=== PATIENT | female | born 1940 | race Caucasian/White ===

== ENCOUNTER 2017-07-01 18:05 | Inpatient (IN) | payer OTHER ==
[~2017-07-01] VITALS: Ht 162.6 cm; Wt 90.4 kg
[~2017-07-01 18:05] MED LIST: ASPIR 8181 MG PO; ATENOLOL100 MG PO; BACTRIM DS1 TAB PO; BENICAR20 MG PO; COL100 PO; GLYBURIDE5 MG PO; ISOSORBIDE DINI20 MG PO; LAC PO; METFORMIN500 M1 PO; NORCO1 TA2 PO; SIMVASTATIN20 M1 PO; TRE400 PO
[2017-07-01 20:35] LABS: UA SPECIFIC GRAVITY 1.025 (1.005-1.035); microscopic required? YES; urine erythrocyte TRACE (NEGATIVE)
[2017-07-01 20:50] LABS: BASOPHIL % 0.4 % (0-2); PLATELET COUNT 273 x10^3mcL (130-400)
[2017-07-01 20:59] LABS: CALCIUM 9.1 mg/dL (8.5-10.1); CARBON DIOXIDE 29.3 mmol/L (21-32); CHLORIDE SERUM 101 mmol/L (98-107); CREATININE SERUM 1.4 mg/dL (0.6-1.0); GLUCOSE SERUM 172 mg/dL (74-106); POTASSIUM SERUM 3.1 mmol/L (3.5-5.1); SODIUM SERUM 140 mmol/L (136-145)
[2017-07-01 21:11] LABS: ALBUMIN 3.6 g/dL (3.4-5.0); ALKALINE PHOSPHATASE 103 U/L (46-116); ALT/SGPT 20 U/L (14-59); AST/SGOT 20 U/L (15-37); BILIRUBIN TOTAL 0.9 mg/dL (0.20-1.00); CHOLESTEROL 173 mg/dL (<200); HDL CHOLESTEROL 51 mg/dL (40-60); LIPASE 194 IU/L (73-393); TOTAL PROTEIN, SERUM 8.3 g/dL (6.4-8.2)
[2017-07-01] MEDS ORDERED: CLOPIDOGREL75 M1 PO (22:43)
[2017-07-01] MEDS ORDERED: JANUVIA100 M1 PO (22:44)
[2017-07-01] MEDS ORDERED: GLIPIZIDE10 M2 PO (22:44)
[2017-07-01] MEDS ORDERED: CYCLOBENZAPRINE10 MG PO (22:45)
[2017-07-01] MEDS ORDERED: ISOSORBIDE DINI20 MG PO (22:47)
[2017-07-01 23:44] LABS: CHOLESTEROL/HDL RATIO 3.5; MAGNESIUM 1.3 mg/dL (1.8-2.4); PHOSPHOROUS 2.9 mg/dL (2.5-4.9)
[2017-07-01 23:51] LABS: T3 TOTAL 1.1 ng/mL
[2017-07-02] VITALS (7 sets, daily range): BP systolic 100–158; BP diastolic 62–101; Ht 162.6 cm; Wt 90.4 kg
[2017-07-02 00:03] LABS: FREE T4 1.07 ng/dL (0.76-1.46); FREE THYROXINE INDEX 2.9 ug/dL (1.4-4.5); T4(THYROXINE) 8.4 ug/dL (4.7-13.3)
[2017-07-02 06:00] LABS: PLATELET COUNT 250 x10^3mcL (130-400); RED CELL DISTRIBUTION WIDTH 14.3 % (11.5-14.5)
[2017-07-02 06:10] LABS: CALCIUM 8.6 mg/dL (8.5-10.1); CARBON DIOXIDE 23.2 mmol/L (21-32); CHLORIDE SERUM 103 mmol/L (98-107); CREATININE SERUM 1.2 mg/dL (0.6-1.0); GLUCOSE SERUM 244 mg/dL (74-106); POTASSIUM SERUM 3.1 mmol/L (3.5-5.1); SODIUM SERUM 140 mmol/L (136-145)
[2017-07-02 06:49] LABS: BASOPHIL % 0 % (0-2)
[2017-07-03 05:44] VITALS: BP 148/73
[2017-07-03 07:58] LABS: CALCIUM 8.3 mg/dL (8.5-10.1); CARBON DIOXIDE 24.7 mmol/L (21-32); CHLORIDE SERUM 108 mmol/L (98-107); CREATININE SERUM 1.3 mg/dL (0.6-1.0); GLUCOSE SERUM 216 mg/dL (74-106); MAGNESIUM 1.9 mg/dL (1.8-2.4); PHOSPHOROUS 2.5 mg/dL (2.5-4.9); POTASSIUM SERUM 3.2 mmol/L (3.5-5.1); SODIUM SERUM 143 mmol/L (136-145)
[2017-07-03 08:09] LABS: BASOPHIL % 1.6 % (0-2); PLATELET COUNT 238 x10^3mcL (130-400); RED CELL DISTRIBUTION WIDTH 13.3 % (11.5-14.5)
[2017-07-03 09:33] VITALS: BP 151/80
[2017-07-03 10:41] VITALS: BP 137/80
[2017-07-03 12:50] VITALS: BP 152/93
[2017-07-03 17:37] VITALS: BP 155/65
[2017-07-03 20:40] VITALS: BP 143/55
[2017-07-04 05:41] VITALS: BP 159/69
[2017-07-04 07:20] LABS: BASOPHIL % 0.4 % (0-2); PLATELET COUNT 207 x10^3mcL (130-400); RED CELL DISTRIBUTION WIDTH 13.8 % (11.5-14.5)
[2017-07-04 07:25] LABS: CALCIUM 8.1 mg/dL (8.5-10.1); CARBON DIOXIDE 24.5 mmol/L (21-32); CHLORIDE SERUM 108 mmol/L (98-107); CREATININE SERUM 1.3 mg/dL (0.6-1.0); GLUCOSE SERUM 208 mg/dL (74-106); MAGNESIUM 1.5 mg/dL (1.8-2.4); PHOSPHOROUS 2.4 mg/dL (2.5-4.9); POTASSIUM SERUM 3.2 mmol/L (3.5-5.1); SODIUM SERUM 141 mmol/L (136-145)
[2017-07-04 10:37] VITALS: BP 136/70
[2017-07-04] MEDS ORDERED: PROTONIX40 MG/Pac1 PO (12:11)
[2017-07-04 12:18] VITALS: BP 136/70
[2017-07-04] MEDS ORDERED: COUMADIN5 MG PO ×2 (12:19→12:20)
[2017-07-04] MEDS ORDERED: LEVAQUIN750 MG PO ×2 (12:19→12:20)
== END 2017-07-04 13:30 | disposition home or self-care (01) | DRG 377 ==
LOC: ED 18:05 → DU 22:35
PROVIDERS: Emergency Medicine; Internal Medicine Gastroenterology; ADMIT Family Medicine
PROC: 0DB78ZX Excision of Stomach, Pylorus, Via Natural or Artificial Opening Endoscopic, Diagnostic (ICD-10-PCS; principal; 2017-07-03 15:00)
PROC: 0DJD8ZZ Inspection of Lower Intestinal Tract, Via Natural or Artificial Opening Endoscopic (ICD-10-PCS; 2017-07-03 15:00)
DX: K29.01 Acute gastritis with bleeding (principal); N17.0 Acute kidney failure with tubular necrosis; K56.7 Ileus, unspecified; N39.0 Urinary tract infection, site not specified; D68.69 Other thrombophilia; E11.65 Type 2 diabetes mellitus with hyperglycemia; I48.91 Unspecified atrial fibrillation; K59.00 Constipation, unspecified; E86.0 Dehydration; K21.9 Gastro-esophageal reflux disease without esophagitis; I10 Essential (primary) hypertension; R80.9 Proteinuria, unspecified; E87.6 Hypokalemia; E83.42 Hypomagnesemia; E02 Subclinical iodine-deficiency hypothyroidism; Z79.82 Long term (current) use of aspirin; Z68.34 Body mass index [BMI] 34.0-34.9, adult; Z87.891 Personal history of nicotine dependence; Z79.84 Long term (current) use of oral hypoglycemic drugs
CPT/HCPCS: 43235; 45378; 83880; 84439; 90658; J0360; J0696; J1200; J1610; J1644; J1885; J2250; J2310; J2405; J2765; J3010; J3475; J3490; J7030; Q0092

== ENCOUNTER 2019-03-22 23:24 | Emergency (ER) | payer OTHER ==
[~2019-03-22] VITALS: Ht 160 cm; Wt 82.6 kg
[~2019-03-22 23:24] MED LIST changes: +BENICAR HCT1 TAB PO; -BENICAR20 MG PO; +CLOPIDOGREL75 M1 PO; +COUMADIN5 MG PO; +CYCLOBENZAPRINE10 MG PO; +GLIPIZIDE10 M2 PO; +JANUVIA100 M1 PO; +LEVAQUIN750 MG PO; +PROTONIX40 MG/Pac1 PO
[2019-03-22 23:38] VITALS: Ht 160 cm; Wt 82.6 kg
[2019-03-23 01:49] LABS: BASOPHIL % 0.4 % (0-2); PLATELET COUNT 331 x10^3mcL (130-400); RED CELL DISTRIBUTION WIDTH 14.5 % (11.5-14.5)
[2019-03-23 01:49] LABS: CHLORIDE SERUM 105 mmol/L (98-107); CREATININE SERUM 1.4 mg/dL (0.6-1.0); GLUCOSE SERUM 205 mg/dL (74-106); POTASSIUM SERUM 3.4 mmol/L (3.5-5.1); SODIUM SERUM 141 mmol/L (136-145)
[2019-03-23 02:01] LABS: ALKALINE PHOSPHATASE 81 U/L (46-116); ALT/SGPT 18 U/L (14-59); AST/SGOT 10 U/L (15-37); BILIRUBIN TOTAL 0.66 mg/dL (0.20-1.00); TOTAL PROTEIN, SERUM 7.5 g/dL (6.4-8.2)
[2019-03-23 02:23] LABS: UA SPECIFIC GRAVITY 1.025 (1.005-1.035); microscopic required? YES; urine erythrocyte NEGATIVE (NEGATIVE)
[2019-03-23] MEDS ORDERED: XARELTO10 M1 PO (04:37)
[2019-03-23 07:21] VITALS: BP 187/90
== END 2019-03-23 07:21 | disposition short-term general hospital (02) ==
LOC: ED 23:24
PROVIDERS: Emergency Medicine
DX: N12 Tubulo-interstitial nephritis, not specified as acute or chronic (principal); I48.91 Unspecified atrial fibrillation; E11.9 Type 2 diabetes mellitus without complications; I10 Essential (primary) hypertension; M54.5 Low back pain; E78.00 Pure hypercholesterolemia, unspecified; Z88.6 Allergy status to analgesic agent; Z88.5 Allergy status to narcotic agent; Z88.8 Allergy status to other drugs, medicaments and biological substances
CPT/HCPCS: 82962; J0696; J2405; J3010; J7060